=== PATIENT | male | born 1980 | race Caucasian/White ===

== ENCOUNTER 2018-04-04 22:54 | Emergency (ER) | payer OTHER, MEDICAID, SELFPAY ==
[2018-04-04 22:54] VITALS: BP 174/91; PULSE 110; RESP 16; TEMP 36.7; O2SAT 98; BMI 31.5
--- NOTE | 2018-04-04 23:10 | ED.VISSUMM ---
- ER Visit Summary Date of Service: 04/04/18 Chief Complaint: Burn wound to left hand History of Present Illness: The patient is a 37 M who was at work tonight and tripped. He instinctively grabbed a hot bar that had just come out of the convection oven. Tetanus is up-to-date. Physical Examination: Vital signs significant for blood pressure of 174/91 and a heart rate of 110. Left upper extremity examination significant for first-degree burn to the palm of left hand on the webspace between the thumb and index finger, as well as along the radial side of the index and middle fingers. There are a few small areas of early second-degree burn. Burn area is less than 1%. Test Results: [] Emergency Department Course and Treatment: Wound is cleansed and dressed. He is treated with naproxen. Treatment Plan: [] Disposition: Discharge Impression: First and second-degree her left palm This note was generated with [employer] dictation software. It may contain incorrect words, spelling, and punctuation that were not noted in review of the chart prior to signing ED Disposition - Plan for ED Patient: Disposition: Home or Assisted Living Chief Complaint: Burn Instructions: ED Burn Thermal D 2nd Dressing Prescriptions: Naproxen [Naprosyn] 500 mg PO BID PRN PRN #20 tablet PRN Reason: Pain [facility]errals: [facility] OF PHYSICIANS] - 2 Days
--- NOTE | 2018-04-04 23:10 | ED.DEP ---
ED Disposition - Plan for ED Patient: Disposition: Home or Assisted Living Chief Complaint: Burn Instructions: ED Burn Thermal D 08 10 Dressing Prescriptions: Naproxen [Naprosyn] 500 mg PO BID PRN PRN #20 tablet PRN Reason: Pain Referrals: [facility] [GROUP OF PHYSICIANS] - 2 Days
[2018-04-04] MEDS: Naproxen 500 MG Tablet PO (23:24)
--- NOTE | 2018-04-04 23:50 | ED.RN ---
[t given written and verbal d/c instructions and verbalizes understanding and home going prescriptions. pt denies any further questions. educated to watch for signs and sx of infections. pt to follow up with [facility] reguarding further issues. ice pack given. pt ambulates out of dept by self.
== END 2018-04-04 23:51 | disposition home or self-care (01) ==
LOC: ED 23:25
PROVIDERS: Emergency Provider Emergency Medicine; Family Provider Family Medicine; PCP Family Medicine
DX: T23.252A Burn of second degree of left palm, initial encounter (principal); T23.232A Burn of second degree of multiple left fingers (nail), not including thumb, initial encounter; T31.0 Burns involving less than 10% of body surface; E11.9 Type 2 diabetes mellitus without complications; Z72.0 Tobacco use; Z79.84 Long term (current) use of oral hypoglycemic drugs
CPT/HCPCS: 99283

== ENCOUNTER 2020-01-08 13:39 | Emergency (ER) | payer BC, MEDICAID, SELFPAY ==
[2020-01-08 13:39] VITALS: BMI 31.8
[2020-01-08 13:40] VITALS: BP 150/93; PULSE 94; RESP 18; TEMP 36.9; O2SAT 98; BMI 32.5
--- NOTE | 2020-01-08 16:14 | ED.VIS.UPPEX ---
History of Present Illness Chief Complaint: Laceration Narrative: Patient presenting for evaluation secondary to a left hand laceration. Patient reports that he was using a switch box installer, he is right-hand dominant, and he lacerated the palm of his left hand with a switch box installer. Patient reports that his last tetanus shot was within the last 18 months. Pain is mild, patient reports that he cleansed the wound prior to arrival. Review of systems otherwise negative. Past Medical History - Allergies and Home Meds Allergies/Adverse Reactions: Allergies No Known Allergies Allergy (Verified 01/08/20 13:41) Primary Care Physician: Dima Antonio III, MD [Primary Care Provider] - Smoking Status: Current every day smoker Review of Systems All systems negative except as indicated General: Denies: Chills, Fever, Sweats Eyes: Denies: Visual changes - bilaterally, Diplopia ENT: Denies: Rhinorrhea, Sore throat Cardiovascular: Denies: Chest pain, Palpitations Respiratory: Denies: Dyspnea, Cough, Dyspnea on exertion Gastrointestinal: Denies: Abdominal pain, Nausea, Vomiting, Diarrhea, Melena, Hematochezia Genitourinary: Denies: Dysuria, Hematuria, Frequency Musculoskeletal: Denies: Back pain, Extremity Pain Skin: Reports: Wounds Neurological: Denies: Headache, Weakness, Numbness Endocrine: Reports: - - History of diabetes Physical Exam Vital Signs/Narrative: Vital Signs Temp Pulse Resp BP Pulse Ox 01/08/20 13:40 98.4 F 94 18 150/93 H 98 Inital Vital Signs reviewed: Yes Left Hand: - - Examination of the patient's left hand shows a 2 cm laceration over the palmar thenar eminence of the hand that is very mildly gaping. Normal flexion and extension of the fingers, normal capillary refill, normal two-point sensation. General: Well nourished, Well developed Head: Normocephalic, Atraumatic Eyes: EOMI ENT: No Trauma Neck: Full ROM Cardiovascular: Regular rate, Regular rhythm Respiratory: No distress Skin: Normal color, No rash Neurological: Alert, Oriented x3 Psychological: Normal affect Diagnostic/Tx/Re-eval - Medical Decision Making Patient presented secondary to a left hand laceration. Wound was dressed as noted in the procedure note. Patient will follow-up with primary care for suture removal in 7 to 10 days. There is no evidence of deep structure involvement, flexor tendon injury, or other serious injury that would require further work-up. Procedures - Lacerations No standard instances Length: 24 in Depth: Skin Shape: Linear Prep: Sterile Conditions, Deondre-Clemelvi Laceration Repair: Lidocaine, Sutures Irrigated (ml): 250 Number of Sutures/Nai: 4 Suture Information: Ethilon, Simple, 4-0 ED Disposition - Plan for ED Patient: Disposition: Home or Assisted Living Diagnosis: Laceration of left hand Instructions: ED Laceration Hand Referrals: Dima Antonio III, MD [Primary Care Provider] - 7 Days for suture removal
== END 2020-01-08 16:34 | disposition home or self-care (01) ==
PROVIDERS: Emergency Provider Emergency Medicine; PCP Family Medicine
DX: S61.412A Laceration without foreign body of left hand, initial encounter (principal); F17.200 Nicotine dependence, unspecified, uncomplicated; E11.9 Type 2 diabetes mellitus without complications; X58.XXXA Exposure to other specified factors, initial encounter; Z79.84 Long term (current) use of oral hypoglycemic drugs
CPT/HCPCS: 12001; 99284